=== PATIENT | female | born 1950 | race Caucasian/White ===

== ENCOUNTER 2016-03-07 15:16 | Emergency (ER) | payer MEDICAID ==
[~2016-03-07] VITALS: Ht 152.4 cm; Wt 96.5 kg
[2016-03-07 15:20] VITALS: Ht 152.4 cm; Wt 96.5 kg
[2016-03-07] MEDS ORDERED: KETOROLAC 30 MG INJ IM STA (15:57)
--- NOTE | 2016-03-07 16:01 | ERD ---
ER Documentation Chief Complaint Date/Time DATE: 03/07/16 TIME: 15:59 Chief Complaint RT SHOULDER AND RT KNEE PAIN S/P TRIP AND FALL, NO KO HPI This is a 65-year-old female who presents the emergency department today complaining of right arm and right knee pain after slipping and falling earlier today. Patient states she fell face forward. Denies any loss of consciousness. He has not taken any medication for the pain. Denies any fevers or chills. ROS All systems reviewed and are negative except as per history of present illness. Medications Home Meds Active Scripts Acetaminophen* (Tylophen*) 500 Mg Capsule, 1 CAP PO Q6H Y for PAIN AND OR ELEVATED TEMP, #30 CAP Prov:LULY VEGA PA-C 03/07/16 Naproxen* (Naprosyn*) 500 Mg Tablet, 500 MG PO BID Y for PAIN AND/OR INFLAMMATION, #30 TAB Prov:LULY VEGA PA-C 03/07/16 Tramadol HCl (Tramadol HCl) 50 Mg Tablet, 50 MG PO Q4 Y for PAIN, #30 TAB Prov:LULY VEGA PA-C 03/07/16 Allergies Allergies: Coded Allergies: No Known Allergy (Unverified , 03/07/16) PMhx/Soc Hx Alcohol Use: No Hx Substance Use: No Hx Tobacco Use: No Physical Exam Vitals Vital Signs Date Time Temp Pulse Resp B/P Pulse Ox O2 Delivery O2 Flow Rate FiO2 03/07/16 15:20 98.5 99 22 147/86 97 Physical Exam Const: Sitting in wheelchair, mild distress Head: Atraumatic Eyes: Normal Conjunctiva ENT: Normal External Ears, Nose and Mouth. Neck: Full range of motion..~ No meningismus. Resp: Clear to auscultation bilaterally Cardio: Regular rate and rhythm, no murmurs Abd: Soft, non tender, non distended. Normal bowel sounds Skin: No petechiae or rashes Back: No midline or flank tenderness MSK right arm with no obvious deformity. Unable to assess range of motion secondary to pain. No ecchymosis. No effusion. Pulses 2+. Distal neurovascularly intact. Right knee with no obvious deformity. Evidence of abrasion. Full active range of motion. Pulses 2+. Distal neurovascularly intact. Neur: Awake and alert Psych: Normal Mood and Affect Results 24 hrs Current Medications Medications (Trade) Dose Ordered Sig/Harman Route PRN Reason Start Time Stop Time Status Last Admin Dose Admin Ketorolac Tromethamine (Toradol) 30 mg ONCE STAT IM 03/07/16 15:57 03/07/16 15:58 DC 03/07/16 16:00 DIAGNOSTIC IMAGING REPORT Patient: FELICE BORGES : 1950 Age: 65 Sex: F MR #: [id number] DOS: 03/07/16 0000 Ordering MD: LULY VEGA PA-C Location: [facility] Room/Bed: PROCEDURE: Right forearm series CLINICAL INDICATION: Pain status post fall TECHNIQUE: AP and lateral views COMPARISON: None available FINDINGS: No acute fractures or dislocations are present. No radiodense foreign bodies are present. Mild soft tissue swelling is noted of the left forearm. IMPRESSION: 1. No evidence for acute fractures or dislocations. RPTAT: HDC .Leslee Daniels MD, MD Date Time Electronically viewed and signed by .Leslee Daniels MD, on 03/07/2016 16: 51 .C/ CC: LULY VEGA PA-C Patient: FELICE BORGES : 1950 Age: 65 Sex: F MR #: [id number] DOS: 03/07/16 0000 Ordering MD: LULY VEGA PA-C Location: [facility] Room/Bed: PROCEDURE: Right upper extremity CLINICAL INDICATION: Pain status post fall TECHNIQUE: AP and lateral right arm series COMPARISON: Right shoulder series 03/07/2016 FINDINGS: No definite evidence for acute fractures or dislocations are noted. The joint spaces are well preserved. The right hemithorax and right ribs are normal. Moderate right acromioclavicular osteoarthropathy is present. No radiodense foreign bodies are present. Generalized osteopenia is present. IMPRESSION: 1. No acute fractures or dislocations. 2. Moderate right acromioclavicular osteoarthropathy. 3. Generalized osteopenia RPTAT: HDC .Leslee Daniels MD, MD Date Time Electronically viewed and signed by .Leslee Daniels MD, MD on 03/07/2016 16: 54 .C/ CC: LULY VEGA PA-C Patient: FELICE BORGES : 1950 Age: 65 Sex: F MR #: [id number] DOS: 03/07/16 0000 Ordering MD: LULY VEGA PA-C Location: [facility] Room/Bed: PROCEDURE: XR Knee. CLINICAL INDICATION: Trauma, pain. TECHNIQUE: Three views of the right knee are available for review. COMPARISON: None available FINDINGS: A marker was placed adjacent to the lateral aspect and eighth localization purposes. There is no evidence for fracture, subluxation or dislocation. There are small notch osteophytes indicative of arthrosis and there is mild arthrosis of the patellofemoral joint. No joint effusion is identified. Bony alignment is within normal limits. IMPRESSION: 1. Mild arthrosis. 2. No acute fracture or dislocation is seen. 3. No erosive changes seen. No evidence for inflammatory arthritis. RPTAT: XX .Humberto Royal MD, MD Date Time Electronically viewed and signed by .Humberto Royal MD, MD on 03/07/2016 16: 54 .T/ CC: LULY VEGA PA-C Patient: FELICE BORGES : 1950 Age: 65 Sex: F MR #: [id number] DOS: 03/07/16 0000 Ordering MD: LULY VEGA PA-C Location: [facility] Room/Bed: PROCEDURE: XR Shoulder. CLINICAL INDICATION: Trauma, fall. TECHNIQUE: Three views of the right shoulder are available for review. COMPARISON: None available FINDINGS: No fracture, subluxation or dislocation is identified. No evidence for erosive change. No evidence for rib fracture. No radiopaque foreign body identified. There is moderate AC arthrosis. The bones are osteopenic. IMPRESSION: 1. Osteopenia. No fracture identified. 2. No subluxation or dislocation identified. 3. Moderate AC arthrosis. RPTAT: XX .Humberto Royal MD, MD Date Time Electronically viewed and signed by .Humberto Royal MD, MD on 03/07/2016 16: 45 .T/ CC: LULY VEGA PA-C MR #: [id number] DOS: 03/07/16 0000 Ordering MD: LULY VEGA PA-C Location: [facility] Room/Bed: PROCEDURE: XR Right Wrist. CLINICAL INDICATION: Trauma, fall. TECHNIQUE: 4 viewsof the right wrist were obtained. COMPARISON: No prior studies are available for comparison. FINDINGS: No evidence for fracture, subluxation or dislocation. No scapholunate diastasis is seen. No radiopaque foreign body identified. There is no evidence for erosive change. Bony alignment is within normal limits. IMPRESSION: 1. Unremarkable right wrist x-ray series. 2. No evidence for fracture, subluxation or dislocation. RPTAT: XX .Humberto Royal MD, MD Date Time Electronically viewed and signed by .Humberto Royal MD, MD on 03/07/2016 16: 43 .T/ CC: LULY VEGA PA-C Procedures/MDM This is a 65-year-old female who presents to the emergency department today complaining of right arm and right knee pain after mechanical fall. Patient had no loss of consciousness. Patient did have a significant amount of pain and I was unable to assess her arm range of motion secondary to pain and therefore I did obtain images. Per the radiology report images of the right wrist are unremarkable. There is no acute fracture or dislocation. Bony alignment is within normal limits. Images of the right forearm show no acute fracture or dislocation. There is mild soft tissue swelling noted of the left forearm. Images of the right upper extremity show no acute fracture dislocation. There is moderate right before meals osteoarthropathy and generalized osteopenia. Images of the right shoulder show osteopenia with no subluxation or dislocation. There is moderate before meals arthrosis. The bones are osteopenic Images of the right knee showed mild arthrosis. There is no acute fracture or dislocation. No joint effusion. Patient has no acute fracture or dislocation however she is having difficulty raising her arm and I do have some suspicion for rotator cuff pathology or labral pathology. I've explained this to the patient. I've explained to her that she would likely need an MRI and further evaluation by an rn orthopedic. Patient states she has a primary care doctor at [facility] and also given her a list of referrals. She was given a Toradol injection here in the emergency department and pain improved. I will give her a prescription for tramadol and Naprosyn and Tylenol for home. Patient was also placed in a sling. At this time the patient is stable for discharge and outpatient management. Patient should follow up with their PCP in the next 1-2 days. They may return to the emergency department sooner for any persistent or worsening of symptoms. Patient understood and agreed with the plan. Departure Diagnosis: Primary Impression: Arm injury Encounter type: initial encounter Laterality: right Qualified Code: S49.91XA - Arm injury, right, initial encounter Condition: Fair LULY VEGA PA-C Mar 07, 2016 16:01
--- NOTE | 2016-03-07 16:43 | RADRPT ---
PROCEDURE: XR Right Wrist. CLINICAL INDICATION: Trauma, fall. TECHNIQUE: 4 viewsof the right wrist were obtained. COMPARISON: No prior studies are available for comparison. FINDINGS: No evidence for fracture, subluxation or dislocation. No scapholunate diastasis is seen. No radiop aque foreign body identified. There is no evidence for erosive change. Bony alignment is within no rmal limits. IMPRESSION: 1. Unremarkable right wrist x-ray series. 2. No evidence for fracture, subluxation or dislocation. RPTAT: XX .Humberto Royal MD, MD Date Time Electronically viewed and signed by .Humberto Royal MD, on 03/07/2016 16:43 .T/
--- NOTE | 2016-03-07 16:46 | RADRPT ---
PROCEDURE: XR Shoulder. CLINICAL INDICATION: Trauma, fall. TECHNIQUE: Three views of the right shoulder are available for review. COMPARISON: None available FINDINGS: No fracture, subluxation or dislocation is identified. No evidence for erosive change. No evidence for rib fracture. No radiopaque foreign body identified. There is moderate AC arthrosis. The bon es are osteopenic. IMPRESSION: 1. Osteopenia. No fracture identified. 2. No subluxation or dislocation identified. 3. Moderate AC arthrosis. RPTAT: XX .Humberto Royal MD, MD Date Time Electronically viewed and signed by .Humberto Royal MD, MD on 03/07/2016 16:45 .T/
--- NOTE | 2016-03-07 16:51 | RADRPT ---
PROCEDURE: Right forearm series CLINICAL INDICATION: Pain status post fall TECHNIQUE: AP and lateral views COMPARISON: None available FINDINGS: No acute fractures or dislocations are present. No radiodense foreign bodies are present. Mild soft tissue swelling is noted of the left forearm. IMPRESSION: 1. No evidence for acute fractures or dislocations. RPTAT: HDC .Leslee Daniels MD, Date Time Electronically viewed and signed by .Leslee Daniels MD, on 03/07/2016 16:51 .C/
--- NOTE | 2016-03-07 16:54 | RADRPT ---
PROCEDURE: XR Knee. CLINICAL INDICATION: Trauma, pain. TECHNIQUE: Three views of the right knee are available for review. COMPARISON: None available FINDINGS: A marker was placed adjacent to the lateral aspect and eighth localization purposes. There is no ev idence for fracture, subluxation or dislocation. There are small notch osteophytes indicative of ar throsis and there is mild arthrosis of the patellofemoral joint. No joint effusion is identified. Bony alignment is within normal limits. IMPRESSION: 1. Mild arthrosis. 2. No acute fracture or dislocation is seen. 3. No erosive changes seen. No evidence for inflammatory arthritis. RPTAT: XX .Humberto Royal MD, MD Date Time Electronically viewed and signed by .Humberto Royal MD, on 03/07/2016 16:54 .T/
--- NOTE | 2016-03-07 16:54 | RADRPT ---
PROCEDURE: Right upper extremity CLINICAL INDICATION: Pain status post fall TECHNIQUE: AP and lateral right arm series COMPARISON: Right shoulder series 03/07/2016 FINDINGS: No definite evidence for acute fractures or dislocations are noted. The joint spaces are well prese rved. The right hemithorax and right ribs are normal. Moderate right acromioclavicular osteoarthro claudia is present. No radiodense foreign bodies are present. Generalized osteopenia is present. IMPRESSION: 1. No acute fractures or dislocations. 2. Moderate right acromioclavicular osteoarthropathy. 3. Generalized osteopenia RPTAT: HDC .Leslee Daniels MD, Date Time Electronically viewed and signed by .Leslee Daniels MD, on 03/07/2016 16:54 .C/
[2016-03-07] MEDS ORDERED: ULT50 PO (17:26)
[2016-03-07] MEDS ORDERED: NAPR-260 PO (17:26)
[2016-03-07] MEDS ORDERED: ACET500C5 PO (17:27)
[2016-03-07 17:36] VITALS: BP 131/67; PULSE 89; RESP 18; TEMP 98.5
== END 2016-03-07 17:40 | disposition home or self-care (01) ==
LOC: E/R 15:16
DX: S49.91XA Unspecified injury of right shoulder and upper arm, initial encounter (principal); I10 Essential (primary) hypertension; W01.0XXA Fall on same level from slipping, tripping and stumbling without subsequent striking against object, initial encounter; Y92.9 Unspecified place or not applicable
CPT/HCPCS: 73030; 73060; 73090; 73110; 73562; 96372; J1885; Z7502